=== PATIENT | male | born 1930 | race Caucasian/White ===

== ENCOUNTER → 2017-01-31 | Outpatient (CLI) | payer MEDICARE, OTHER ==
[~2017-01-31] VITALS: Ht 165.1 cm; Wt 68.0 kg
[~2017-01-31] MED LIST: ARIC10TA OR; ARIC1TAB2 PO; ASPI81TA3 OR; ASPI81TA85 PO; ATOR1TAB21 PO; BUPR15TA OR; COLA100C2 OR; DILT120C PO; DIOV80TA OR; DRON40TA PO; ESCI10TA2 PO; FIORICET OR; FLUR15CA14 PO; LIDOCAINE 2% INJ 100 MG/5 ML SDV (FOR ANES.) As Ordered ONE; LIPI20TA OR; MEMA1TAB2 PO; METO5TAB2 PO; MILKSUS OR; MULTIVIT PO; NS 1,000 ML IV ONE; NYST50SS PO; OMEP40CA2 PO; OXYC10TA97 OR; OXYC5CAP4 OR; PLAV75TA2 OR; PRIL20CA OR; PROPOFOL 200 MG/20 ML VIAL As Ordered ONE; fentaNYL 100 MCG/2 ML INJECTION (J3010) As Ordered ONE; namenda OR; ocuvite OR
--- NOTE | 2017-01-31 08:09 | ROOR ---
Patient Name: Austin Slater Procedure Date: 01/31/2017 7:51 AM Date of : 1930 Age: 86 Room: [facility] Gender: Male Note Status: Finalized Procedure: Upper GI endoscopy Indications: Dysphagia Providers: Trent GARCIA MD Referring MD: LEXIE LOVE MD Requesting Provider: Medicines: Monitored Anesthesia Care Complications: No immediate complications. Procedure: Pre-Anesthesia Assessment: - The heart rate, respiratory rate, oxygen saturations, blood pressure, adequacy of pulmonary ventilation, and response to care were monitored throughout the procedure. The Endoscope was introduced through the mouth, and advanced to the second part of duodenum. The upper GI endoscopy was accomplished without difficulty. The patient tolerated the procedure well. Findings: A moderate Schatzki ring (acquired) was found in the lower third of the esophagus. A TTS dilator was passed through the scope. Dilation with a 15-16.5-18 mm balloon dilator was performed to 16.5 mm. The dilation site was examined and showed complete resolution of luminal narrowing. Estimated blood loss was minimal. A small hiatal hernia was present. 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 A gastric pouch was found. The gastroduodenal anastomosis was characterized by healthy appearing mucosa. This was traversed. The examined duodenum was normal. Impression: - Moderate Schatzki ring. Dilated. - Small hiatal hernia. - Patent Billroth I, (or antrectomy) gastroduodenostomy was found, characterized by healthy appearing mucosa. - Normal examined duodenum. - No specimens collected. Recommendation: - Use Prilosec (omeprazole) 40 mg PO daily. - Due to tremors, would recommend you stop Reglan. Trent Garcia MD Trent GARCIA MD 01/31/2017 8:09:07 AM This report has been signed electronically. Number of Addenda: 0 Note Initiated On: 01/31/2017 7:51 AM Estimated Blood Loss: Estimated blood loss: none.
[2017-01-31 08:28] VITALS: BP 128/65
== END | disposition home or self-care (01) ==
LOC: M OPP 07:10
PROVIDERS: ATTEND Internal Medicine Gastroenterology
DX: R13.10 Dysphagia, unspecified (principal); K22.2 Esophageal obstruction; K44.9 Diaphragmatic hernia without obstruction or gangrene; Z98.0 Intestinal bypass and anastomosis status; K21.9 Gastro-esophageal reflux disease without esophagitis; I48.91 Unspecified atrial fibrillation; E78.5 Hyperlipidemia, unspecified; K27.9 Peptic ulcer, site unspecified, unspecified as acute or chronic, without hemorrhage or perforation; R12 Heartburn; M19.90 Unspecified osteoarthritis, unspecified site; G30.9 Alzheimer's disease, unspecified; F32.9 Major depressive disorder, single episode, unspecified; Z86.73 Personal history of transient ischemic attack (TIA), and cerebral infarction without residual deficits; Z95.5 Presence of coronary angioplasty implant and graft; Z87.891 Personal history of nicotine dependence; Z79.82 Long term (current) use of aspirin; Z79.899 Other long term (current) drug therapy; Z80.8 Family history of malignant neoplasm of other organs or systems
CPT/HCPCS: 43249; J3010